=== PATIENT | male | born 1995 | race Caucasian/White ===

== ENCOUNTER 2022-09-20 00:24 | Emergency (ER) | payer SELFPAY ==
[2022-09-20 00:39] VITALS: BP 120/72; PULSE 70; RESP 16; TEMP 36.7; O2SAT 100; BMI 20.2
--- NOTE | 2022-09-20 01:45 | ED_ITS ---
HPI - Extremity Problem General: Chief complaint: Extremity Injury, Lower Stated complaint: back/ hip pain Time Seen by Provider: 09/20/22 01:31 History of Present Illness: Patient is a 26-year-old male comes to the ED with right hip pain. Hip injury occurred approximately 3 days ago. Patient says [place] and his right hip while floating hit a rock. Over the past couple days pain has gotten worse and its located in his right hip and right side of lower back. He rates his pain currently a 5 out of 10. Denies any other symptoms. Associated symptoms: Deny chest pain, fever(s) or rash Review of Systems Const: Denies: fever(s), chills or fatigue Eyes: Denies: change in vision or eye discomfort ENMT: Denies: throat pain, odynophagia, nasal discharge or nasal congestion Card: Denies: chest pain, palpitations, edema, swelling of feet/ankles, dyspne a on exertion or orthopnea Resp: Denies: dyspnea, productive cough or non-productive cough GI: Denies: abdominal pain, nausea, vomiting, diarrhea, constipation or hematochezia : Denies: flank pain, difficulty urinating, dysuria or hematuria Musc: Denies: neck pain, back pain or extremity swelling Skin/Breast: Denies: rash or new lesions Neuro: Denies: headache(s), numbness in extremities or weakness in extremities PFS ED PFSH: Medical History (Updated 09/20/22 @ 03:31 by ILEANA Mcintosh) No pertinent family history Surgical History (Updated 09/20/22 @ 03:31 by ILEANA Mcintosh) No pertinent past surgical history Physical Exam Const: COMMON NORMALS: no acute distress, patient oriented x3 and alert HENMT: COMMON NORMALS: normocephalic HEAD & SCALP: normocephalic MOUTH: Normal oral and palatal mucosa present THROAT: posterior oropharynx normal and uvula midline Neck/C-Spine: COMMON NORMALS: supple GENERAL: Yes normal visual inspection Resp: COMMON NORMALS: normal respiratory effort, No retractions, No use of accessory muscles and clear to auscultation bilaterally AUSCULTATION: clear to auscultation bilaterally Cardio: COMMON NORMALS: regular rate, regular rhythm, S1 normal heart sound present, S2 normal heart sound present, No gallops present (Cardio), No clicks present (Cardio), No murmurs present (Cardio) and Peripheral pulses 2+ throughout RATE: regular rate RHYTHM: regular rhythm HEART SOUNDS: S1 normal heart sound present and S2 normal heart sound present PERIPHERAL PULSES: Peripheral pulses 2+ throughout GI: COMMON NORMALS: Normal to inspection, nondistended, normoactive bowel sounds present, Soft to palpation, non-tender and no masses PALPATION: Yes Soft to palpation : COMMON NORMALS: Yes no CVA tenderness BLADDER/KIDNEY EXAM: Yes no CVA tenderness Back/Pelvis: COMMON NORMALS: no CVA tenderness Extremity: COMMON NORMALS: normal to inspection and full ROM Neuro: COMMON NORMALS: patient oriented x3 SENSORIUM/ORIENTATION: Yes alert GAIT: Yes Normal gait present Skin: GENERAL SKIN EXAM: dry skin Course Vital Signs: Vital signs: Vital Signs Temperature 98.1 F 09/20/22 00:39 Pulse Rate 58 L 09/20/22 02:23 Respiratory Rate 14 09/20/22 02:23 Blood Pressure 120/72 09/20/22 00:39 Pulse Oximetry 99 09/20/22 02:23 Oxygen Delivery Me thod Room Air 09/20/22 00:39 MDM - Extremity (Nontraumatic) Medical Decision Making Patient is a 26-year-old male comes to the ED with right hip pain. Hip injury occurred approximately 3 days ago. Patient says [place] and his right hip while floating hit a rock. Over the past couple days pain has gotten worse and its located in his right hip and right side of lower back. He rates his pain currently a 5 out of 10. Denies any other symptoms. Vitals are stable. Exam is benign. Right hip x-ray showed no acute fractures or findings. Patient was diagnosed with right hip pain and can contusion of lower back and was stable for discharge home. He was sent home with a prescription for ibuprofen 800 mg and a muscle relaxer. Patient told to follow- up with PCP in the next week for reevaluation. Patient understood and agreed with plan. Discharge Plan Discharge Patient Disposition: Home Clinical Impression: Hip pain, right Contusion of lower back Qualifiers: Encounter type: initial encounter Qualified Code(s): S30.0XXA - Contusion of lower back and pelvis, initial encounter Condition: Stable Prescriptions: New ibuprofen 800 mg tablet 800 mg PO Q8H PRN (Reason: pain) Qty: 20 0RF cyclobenzaprine 10 mg tablet 10 mg PO BID PRN (Reason: muscle spasm) Qty: 20 0RF Discharge Orders: Discharge ED (Routine); Ordered 09/20/22 Ordered By: Richmond Bradford Discharge Diet: Regular Discharge Activity: Increase activity as tolerated Activity Restrictions/Additional Instructions: Follow-up with medical provider as directed. Take medications as prescribed. Return to the ER or your medical provider if condition worsens. Please read and understand discharge instructions. Thank you for choosing [facility] for your healthcare needs today. Please realize this is an emergency room and that we are providing you with a medical screening exam and this may not be complete and all inclusive of all the testing and or work up that you may need to determine your ailment or severity of your illness. It is very important that you follow up as instructed or that you return to the Emergency Department should you have concerns or if your condition changes or worsens in any way. Coding Level of Care Code ED [employer] for Micheal Parker
--- NOTE | 2022-09-20 01:45 | XRR_ITS ---
PROCEDURE INFORMATION: Exam: XR Right Hip Exam date and time: 09/20/2022 1:54 AM Age: 26 years old Clinical indication: Injury or trauma; Fall; Blunt trauma (contusions or hematomas); Right; Hip; Additional info: Right hip injury TECHNIQUE: Imaging protocol: Radiologic exam of the right hip. Views: 1 view hip with pelvis when performed. COMPARISON: No relevant prior studies available. FINDINGS: Bones/joints: Unremarkable. No acute fracture. Soft tissues: Unremarkable. XR/XR hip RT 2-3V wo/w pel* [id number] IMPRESSION: No acute findings.
[2022-09-20] MEDS: cyclobenzaprine 10 mg Tablet PO (02:18)
[2022-09-20] MEDS: ibuprofen 800 mg tablet PO (02:18)
[2022-09-20 02:23] VITALS: PULSE 58; RESP 14; O2SAT 99
--- NOTE | 2022-09-30 13:52 | DCPLANNER ---
TCM called patient due to no primary care physician - no answer at this time.
== END 2022-09-20 02:26 | disposition home or self-care (01) ==
PROVIDERS: Emergency Provider Physician Assistant
DX: M25.551 Pain in right hip (principal); S30.0XXA Contusion of lower back and pelvis, initial encounter; W22.09XA Striking against other stationary object, initial encounter; Y92.828 Other wilderness area as the place of occurrence of the external cause
CPT/HCPCS: 73502; 99283